=== PATIENT | male | born 1955 | race Caucasian/White ===

== ENCOUNTER 2022-08-28 19:38 | Emergency (ER) | payer MEDICARE, MEDICAID, SELFPAY ==
--- NOTE | 2022-08-28 20:13 | ED.FALL ---
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 in long term was at family house for dinner sitting on the chair in the kitchen lost balance and fell down on his buttocks without any significant head injury or any other injury noticed to have slight discomfort in the right hip but now moving all 4 extremities looks at baseline Related Data Allergies Allergy/AdvReac Type Severity Reaction Status Date / Time metoclopramide [From REGLAN] Allergy Unknown UNKNOWN Unverified 05/21/20 15:11 Penicillins [PENICILLINS] Allergy Unknown UNKNOWN Unverified 05/21/20 15:11 Sulfa (Sulfonamide Allergy Unknown UNKNOWN Unverified 05/21/20 15:11 Antibiotics) [SULFA (SULFONAMIDE ANTIBIOTICS)] Review of Systems Review of Systems: Yes all other systems are reviewed and are negative [facility] Social History Social History Advance Directives: Yes Advance Directives Information Provided: No Advance Directives on File: No Physical Exam Vital Signs: Vital Signs: Last Vital Signs Temp 96.8 F 08/28/22 21:23 Pulse 80 08/28/22 21:23 Resp 20 08/28/22 21:23 BP 116/66 08/28/22 21:23 Pulse Ox 94 08/28/22 21:23 O2 Del Method 08/28/22 21:23 BMI result Body Mass Index 26.6 Appearance: Alert. Mentally challenged. No acute distress. Eyes: PERRLA, No Nystagmus ENT: Pharynx normal. Oral Mucosa moist Neck: Normal inspection. Neck supple. CVS: Normal heart rate and rhythm. Pulses normal. Respiratory: No respiratory distress. Equal air entry bilateral, no wheezing/rales/rhonchi Abdomen: Soft and nontender. Bowel sounds are present, no mass palpable, no CVA tenderness Skin: Skin warm and dry. Normal skin color. Normal skin turgor. Extremities: No lower extremity edema. No calf tenderness pelvis stable Neuro: Alert and awake. No motor deficit. Medical Decision Making Medical Decision Making MDM Narrative: Patient is status post minor fall without any significant injuries family is bedside according to family patient landed on his hips slightly hit his forehead after hitting hip firs no loss of consciousness x-ray of the pelvis bilateral hips negative patient at his baseline in the ER will discharge patient back to home Discharge Plan Discharge Clinical Impression: Fall Patient Disposition: Home, Self-Care Instructions: Fall Prevention for Older Adults (ED) Additional Instructions: No injuries noticed, x-ray of the pelvis/bilateral hips negative Interventions: ED Discharge Assessment Last Done: 08/28/22 22:10 Discharge Date/Time: 08/28/22 22:13
[2022-08-28 20:18] VITALS: PULSE 76; O2SAT 97; BMI 26.6
[2022-08-28 21:23] VITALS: BP 116/66; PULSE 80; RESP 20; TEMP 36; O2SAT 94
--- NOTE | 2022-08-28 21:32 | PC.NURSE ---
Pt's V/S are stable, Pt has career counselor Areen at bedside. Pt non verbal pain assessment is 0. No bleeding no loss of conscious, no hematoma, no redness, no laceration.
== END 2022-08-28 22:13 | disposition home or self-care (01) ==
PROVIDERS: Emergency Provider Internal Medicine; PCP Internal Medicine
DX: S00.83XA Contusion of other part of head, initial encounter (principal); R10.2 Pelvic and perineal pain; W01.0XXA Fall on same level from slipping, tripping and stumbling without subsequent striking against object, initial encounter; Y93.9 Activity, unspecified; Y92.9 Unspecified place or not applicable; Y99.9 Unspecified external cause status; Z79.899 Other long term (current) drug therapy
CPT/HCPCS: 72170; 99284